=== PATIENT | female | born 1995 | race Caucasian/White ===

== ENCOUNTER 2019-02-07 12:34 | Emergency (ER) | payer OTHER, SELFPAY ==
[2019-02-07 12:45] VITALS: BP 123/74; PULSE 128; RESP 16; TEMP 36.7; O2SAT 100
--- NOTE | 2019-02-07 13:13 | W.ED.GENAD ---
Discharge Plan Disposition Patient Disposition: HOME Condition: Stable Discharge Details Chief Complaint: Sorethroat Clinical Impression: Pharyngitis Primary Care Provider: [facility] ED Provider: Virgilio Voss Home Meds and New Rx's Prescriptions: No Action norgestimate-ethinyl estradiol [Tri-Linyah] 1 EACH tablet 1 tab PO DAILY RF: 0 ranitidine HCl 150 mg Tablet 150 mg PO DAILY RF: 0 Discharge Instructions Instructions: Pharyngitis (ED) Additional Instructions: He may continue to take your normally prescribed medication and use [id number] symptomatic cold relief and take as directed on packaging. Return immediately to the emergency department for any new or significant worsening of symptoms, difficulty breathing or swallowing, any rapid change. Otherwise get plenty of rest and stay well-hydrated. You may follow-up with your primary care provider or school clinic especially if you not improving over the next week. Referrals: [facility] MD [Primary Care Provider] - (As needed for reassessment if not improving) Discharge Data Discharge Date/Time-TO BE ENTERED AT DEPARTURE: 02/07/19 13:34 Medical Decision Making Sore throat, fever, chills for 3 days. Patient does state mild nasal congestion and some abdominal bloating and discomfort but no nausea vomiting, no rash. Physical exam shows bilateral tonsillary erythema, hypertrophy, and small amount of exudates, and some tachycardia otherwise unremarkable exam. staff services manager initiated protocol for rapid strep testing which was negative. Given patient's symptoms mono is also considered along with other viral etiologies. Given the patient is only had symptoms for the last 3 days I feel that high probability of false negative mono is likely and patient is otherwise stable in appearance with no other symptoms no other worrisome findings. I feel the patient can be safely discharged with conservative management at this point but patient was encouraged to follow-up with primary care provider or school clinic if not improving over the next week. Return precautions were also discussed. After discussion of diagnosis and plan of care patient and mother have no further needs, questions, or concerns and states clear understanding to return to the emergency department for any worsening symptoms. HPI General Mode of arrival: ambulatory. Date/Time Provider Initiated Documentation: 02/07/19 12:45. Limitations to Documentation: no limitations. Information obtained by: patient and RN notes reviewed. History of Present Illness 23 year old F presents to the emergency department with the chief complaint of Sore throat, described as moderate, with intensity rated at 4. Quality is described as aching, and is localized to the mouth (Sore throat). Patient started experiencing this day(s) (3) and it has been constant. No relieving factors improve symptom(s), Patient did receive the following treatments prior to arrival, none Related Data Home Medications Medication Instructions Recorded Confirmed norgestimate-ethinyl estradiol 1 tab PO DAILY 12/30/15 02/07/19 [Tri-Linyah] ranitidine HCl 150 mg PO DAILY 02/07/19 02/07/19 Allergies Allergy/AdvReac Type Severity Reaction Status Date / Time No Known Allergies Allergy Unverified 02/07/19 12:49 General Stated Complaint: Sorethroat ROMAN: 4 Review of Systems Constitutional Reports chills, Reports fever(s), Denies headache(s) and Reports malaise ENT Denies dysphagia, Denies otalgia, Denies headache(s), Denies lip swelling, Reports nasal congestion, Reports odynophagia and Reports sore throat Cardiovascular Denies chest pain Respiratory Denies chest congestion and Denies cough Gastrointestinal Reports abdominal pain, Reports bloating, Denies dysphagia, Denies nausea, Reports odynophagia and Denies vomiting Integumentary/Breasts Denies rash Neurologic Denies headache(s) Allergic/Immunologic Denies lip swelling [facility] Social History Smoking/Tobacco Use Status: Never Drug use: Never Exam Const General: cooperative, healthy appearing, comfortable, no acute distress and not ill appearing Orientation: alert, awake and oriented x3 HENMT Head: normal to inspection and normocephalic Ears: hearing grossly normal bilaterally, external ears normal, TM's normal bilaterally and mastoids normal General nose exam: external nose normal and nares normal Face and sinus: normal facial exam Mouth: oral mucosae normal, lip normal, tongue normal, no audible dysphonia, no drooling and no trismus Throat: uvula midline, abnormal tonsil bilaterally erythema, exudates and hypertrophy 2+ and no peritonsillar masses Neck Neck: normal visual inspection, full ROM, no meningeal signs and lymphadenopathy bilateral anterior cervical tender Resp Effort & Inspection: normal respiratory effort, able to speak in complete sentences and no stridor Auscultation: clear to auscultation bilaterally Cardio Rate: regular rate Rhythm: regular rhythm Heart Sounds: S1 normal and S2 normal GI Palpation: soft, not firm, no guarding, no masses, no pulsatile masses, not rigid and nontender Auscultation: normal bowel sounds Skin General skin exam: no rashes or lesions noted Course Vital Signs Temperature 36.7 C 02/07/19 12:45 Pulse 128 H 02/07/19 12:45 Respiratory Rate 16 02/07/19 12:45 Blood Pressure 123/74 02/07/19 12:45 Pulse Oximetry 100 02/07/19 12:45 Temperature 36.7 C 02/07/19 12:45 Temperature Source Temporal Artery Scan 02/07/19 12:45 Pulse 128 H 02/07/19 12:45 Respiratory Rate 16 02/07/19 12:45 Respiratory Effort Non-Labored 02/07/19 12:45 Blood Pressure 123/74 02/07/19 12:45 Blood Pressure Position Sitting 02/07/19 12:45 Pulse Oximetry 100 02/07/19 12:45 Oxygen Delivery Method Room Air 02/07/19 12:45 Oxygen Flow Rate 0 02/07/19 12:45 Pain Level 4 02/07/19 12:45
== END 2019-02-07 13:34 | disposition home or self-care (01) ==
PROVIDERS: Emergency Provider Nurse Practitioner Family; PCP Internal Medicine
DX: J02.9 Acute pharyngitis, unspecified (principal); R50.9 Fever, unspecified
CPT/HCPCS: 87880; 99282; 87081